=== PATIENT | female | born 1985 | race Caucasian/White ===

== ENCOUNTER 2019-04-06 10:55 | Inpatient (IN) | payer OTHER ==
[2019-04-06] MEDS ORDERED: Buffered Lidocaine 1% SYRIN* 1 ML/SYRINGE INTRADERM ONE (11:43)
[2019-04-06] MEDS ORDERED: Lactated Ringers 1000 ML Bag* 1,000 ML IV ONE (11:43)
--- NOTE | 2019-04-06 11:53 | HP ---
General Information - Reason for Visit SROM at term and active labor - General Information Maternal Age: 34 Grav: 3 Para: 1 SAB: 1 IEA: 0 Estimated Due Date: 04/10/19 Determined By: Early Ultrasound Gestational Age in Weeks/Days: 39 3/7 Maternal Blood Type and Rh: O Positive - Results this Serology/RPR Result: Non-Reactive Rubella Result: Immune HBsAg Result: Negative HIV Result: Negative GBS Culture Result: Negative Past Medical History Delivery History: Hx Uncomplicated Vaginal Delivery - hx precipitous delivery Pertinent Past Medical History: See Records - back pain r/t scoliosis Pertinent Past Surgical History: See Records - wisdom tooth extraction Pertinent Family History: See Records - brother of SIDS, HTN - Antepartal Records Antepartal Records: Reviewed, Complicated by: - low lying placenta- resolved, age 34 at delivery Review of Systems Constitutional: Uncomfortable - coping well CV Complaint: No Respiratory: Shortness of Breath: No Gastrointestinal: No Nausea/Vomiting, Normal Bowel Movement Genitourinary: Leaking Fluid, No Dysuria, No Bleeding Musculoskeletal: No Epigastric Pain, Contractions Neurological: No Headache, No Visual Changes Movement: Normal Exam Allergies/Adverse Reactions: Allergies No Known Allergies Allergy (Verified 12/02/14 18:26) T-98.3, P-74, R-17, BP 111/82, O2-98% - Measurements Height: 5 ft 5 in Weight: 69.853 kg Weight in lbs: [id number] Body Mass Index (BMI): 25.6 Pre- Weight: 135 g Weight Gained This : 153.702 lbs and 0.006 ozs - Exam Breast: Breast Exam Deferred CVA: No CVA Tenderness Extremities: No Edema Heart: Normal Rhythm/Heart Sounds HEENT: No Significant Findings Lungs: Clear Bilaterally Rectal: Rectal Exam Deferred Reflexes: DTR 2+ Thyroid: No Thyromegaly - Abdominal Exam Abdomen Exam: Non-Tender - Ultrasound/Biophysical Profile Ultrasound Status: Not Done Targeted Exam Findings See L&D Outpatient Visit Provider Note for Findings: N/A Estimated Weight: 7.5# Cervical Exam: 3cm Effacement: 60% Station: -1 Presenting Part: Vertex Membrane Status: SROM Amniotic Fluid Evaluation: Gross Rupture Bleeding/Discharge: None EFM Findings - External Monitor Findings Baseline Heart Rate: 130 External Monitor Findings: Accelerations Present, No Pattern of Variable or Late Decelerations, Variability Moderate, Baseline Stable Contractions: Regular, Moderate, 45-90 Seconds Contraction Frequency: 2-3 Assessment/Plan - Assessment 34 year old [id number] at 39 3/7 weeks gestation in active labor with spontaneous rupture of membranes to clear fluid. No evidence of acidemia or chorioamnionitis. - Plan Plan: Admit - Anticipate Vaginal Delivery - Date/Time of Admission Date of Admission: 04/06/19 Time of Admission: 11:30
[2019-04-06] MEDS ORDERED: Lactated Ringers 1000 ML Bag* 1,000 ML IV SCH ×2 (12:00→18:00)
--- NOTE | 2019-04-06 13:20 | PN ---
Progress Note - Progress Note Date of Service: 04/06/19 SOAP: Subjective: Pt feeling well. Reports ctx feel somewhat stronger, coping well. at bedside. Objective: FHR: Baseline 130/ moderate variability/ no accels/ no decels UCs: Q 2-3 minutes BP: 123/84 Temp: 98.2 Fluid clear Cervical exam deferred Assessment: Pt appears to be making good progress. No evidence of acidemia or chorioamnionitis. Plan: Will recheck pt in a few hours if no urge to push prior. Intermittent EFM. Temps Q 2 hours. Anticipate .
--- NOTE | 2019-04-06 15:18 | PN ---
Progress Note - Progress Note Date of Service: 04/06/19 SOAP: Subjective: Pt reports ctx are increasing in intensity. Reports some bloody show and continued leakage of clear fluid. Objective: Cervix: 5cm/ 80%/ 0 station/ vtx FHR: 130 per doppler UCs: Q4-5 minutes Fluid clear Assessment: Pt making good progress, in active labor. No evidence of acidemia or chorioamnionitis. Plan: Anticipate
[2019-04-06] MEDS ORDERED: Glycerin ADULT SUPP PR PRN (17:18)
--- NOTE | 2019-04-06 17:45 | PROCNOTE ---
[facility] OB: Delivery Note - Delivery A Date of : 04/06/19 Time of : 15:56 [place] Sex: Female Weight at : 3.325 kg Score 1 Minute: 8 Score 5 Minutes: 9 Gestational Age in Weeks and Days at Delivery: 39 Weeks and 3 Days Delivery Method: Spontaneous Vaginal Labor: Spontaneous Did Patient attempt ?: N/A, No Previous Amniotic Fluid: Clear Estimated Blood Loss: 300 Anesthesia/Analgesia: None Delivered By: Tammy Vasquez - Nursery Level of Nursery: Regular/Bedside - Perineum Perineal Injury: 1st Degree Perineal Repair: By Delivering Practioner - Events Delivery Events of Note: Precipitous Delivery - Additional Delivery Notes Additional Delivery Notes: Pt admitted to L&D with spontaneous rupture of membranes which was followed quickly by onset labor. Pt made steady progress to 5cm dilation and then rapidly progressed to full dilation. Did not use any analgesia/ anesthesia. Pt began to push spontaneously on hands and knees. Pt coached through slow, controlled delivery of the head. Shoulders followed easily. with immediate vigorous cry, brought through mother's knees and pt coached to turn onto her back at which time infant placed on maternal abdomen. with vigorous cry, good tone, but color remained completely dusky for several minutes before then pinking up. Cord clamped x2 after pulsation ceased and cut by 's father. briefly brought to the warmer for evaluation at which time color was good and returned to maternal abdomen. Placenta delivered spontaneously, mona side, with firm fundus and minimal bleeding. Inspection of the perineum revealed first degree laceration, repaired in the usual fashion. Mother and infant stable at this time, anticipate normal course.
[2019-04-06 18:10] LABS: Urine Benzodiazepine Screen None Detected (None Detect); Urine Opiates Screen None Detected (None Detect)
[2019-04-06] MEDS: Witch Hazel PAD* JAR TOPICAL PRN (20:17)
[2019-04-06] MEDS: Ibuprofen TAB* 600 MG PO PRN (20:17)
[2019-04-06] MEDS: Docusate CAP* 100 MG PO SCH (21:50)
[2019-04-07] MEDS: Acetaminophen TAB* 325 MG PO PRN ×2 (00:29→07:59)
[2019-04-07] MEDS: Ibuprofen TAB* 600 MG PO PRN ×3 (04:28→17:39)
[2019-04-07 06:11] LABS: ABS Eosinophils 0.2 10^3/ul (0-0.6); ABS Lymphocytes 1.7 10^3/ul (1.0-4.8); Eosinophil % 1.2 %; Hematocrit 34 % (35-47); Hemoglobin 11.7 g/dL (12.0-16.0); Mean Corpuscular HGB Conc 34 g/dL (31-36); Mean Corpuscular Hemoglobin 30 pg (27-31); Mean Corpuscular Volume 87 fL (80-97); Mean Platelet Volume 7.1 fL (7.4-10.4); Platelet Count 206 10^3/uL (150-450); Red Cell Distribution Width 14 % (10-15); White Blood Count 12.8 10^3/uL (3.5-10.8)
[2019-04-07] MEDS: Docusate CAP* 100 MG PO SCH ×3 (07:59→21:30)
[2019-04-07] MEDS: Dibucaine 1% 28.35 GM TUBE PR PRN (07:59)
[2019-04-07] MEDS: Witch Hazel PAD* JAR TOPICAL PRN (08:00)
[2019-04-07] MEDS ORDERED: Ferrous Gluconate TAB* 324 MG TAB PO SCH (09:00)
[2019-04-08] MEDS: Ibuprofen TAB* 600 MG PO PRN ×2 (00:59→08:54)
[2019-04-08 08:11] VITALS: BP 108/68
[2019-04-08] MEDS: Docusate CAP* 100 MG PO SCH (08:54)
[2019-04-08] MEDS: Dibucaine 1% 28.35 GM TUBE PR PRN (08:54)
[2019-04-08] MEDS: Witch Hazel PAD* JAR TOPICAL PRN (08:54)
== END 2019-04-08 13:35 | disposition home or self-care (01) | DRG 807 ==
LOC: MCHOBOUT 10:55 → MCHOB 11:49
PROVIDERS: ADMIT Midwife; ATTEND Midwife
PROC: 10E0XZZ Delivery of Products of Conception, External Approach (ICD-10-PCS; principal; 2019-04-06)
PROC: 0HQ9XZZ Repair Perineum Skin, External Approach (ICD-10-PCS; 2019-04-06)
DX: O62.3 Precipitate labor (principal); Z37.0 Single live birth; O70.0 First degree perineal laceration during delivery; Z3A.39 39 weeks gestation of pregnancy
CPT/HCPCS: 36415; 80307; 85025; A9270-GY